=== PATIENT | female | born 1970 | race Caucasian/White ===

== ENCOUNTER 2017-02-23 14:58 | Emergency (ER) | payer SELFPAY ==
[2017-02-23] MEDS ORDERED: DIPRIVAN 10 MG/ML 1,000 MG/100 ML BOTTLE IV ONE (15:02)
== END 2017-02-23 15:07 | disposition home or self-care (01) ==
LOC: ED 14:58
DX: Z53.21 Procedure and treatment not carried out due to patient leaving prior to being seen by health care provider (principal)
CPT/HCPCS: J2704